=== PATIENT | male | born 1975 | race Caucasian/White ===

== ENCOUNTER 2023-08-29 13:48 | Emergency (ER) | payer OTHER, SELFPAY ==
[2023-08-29] VITALS (26 sets, daily range): BP systolic 166–177; BP diastolic 92–116; PULSE 79–106; RESP 12–34; TEMP 36.8; O2SAT 95–100
--- NOTE | 2023-08-29 13:45 | RT.EKG_ITS ---
APPROVED REPORT Exam: Resting ECG Reason for Exam: SOB Patient Location: E HR:98 bpm ECG Measurements Heart Rate 98 AXIS MI 138 P 43 QRSd 93 QRS 44 QT 366 T 46 QTc 468 Conclusion Sinus rhythm...normal P axis, V-rate 60- 99
[2023-08-29 14:26] LABS: Abs Immature Grans 0.02 10^3/uL (0.0-0.06); Absolute Basophil Count 0.05 10^3/uL (0.0-0.2); Absolute Eosinophil Count 0.06 10^3/uL (0.0-0.7); Absolute Lymphocyte Count 1.58 10^3/uL (1.2-3.4); Absolute Monocyte Count 0.63 10^3/uL (0.1-0.8); Absolute Neutrophil Count 5.35 10^3/uL (1.2-6.7); Basophils % 0.7; Eosinophils % 0.8; HCT 41.5 % (40.0-50.0); HGB 14.7 g/dL (13.5-17.5); Immature Grans % 0.3; Lymphocytes % 20.5; MCH 31.9 pg (27.0-33.0); MCHC 35.4 % (32.0-36.0); MCV 90 fL (80-95); MPV 8.9 fL (8.0-11.0); Monocytes % 8.2; Neutrophils % 69.5; Platelet Count 220 10^3/uL (130-400); RBC 4.61 10^6/uL (4.36-5.78); RDW 12.1 % (11.8-14.1); RDW-SD 40.2 fL; WBC 7.69 10^3/uL (4.4-10.8)
[2023-08-29] MEDS: Albuterol/Ipratropium 3 ML UPD VIAL UPD (14:32)
[2023-08-29 14:42] LABS: ALT 45 U/L (16-63); AST 32 U/L (15-37); Albumin 4.6 g/dL (3.4-5.0); Alkaline Phosphatase 65 U/L (46-116); BUN 8 mg/dL (7-18); Bilirubin, Total 0.5 mg/dL (0.2-1.0); CREATININE 0.9 mg/dL (0.70-1.30); Calcium 9.7 mg/dL (8.5-10.1); Chloride 101 mmol/L (98-107); Estimated GFR 106.67 (mL/min/1.73m2); Glucose 101 mg/dL (74-106); Potassium 3.3 mmol/L (3.5-5.1); Sodium 137 mmol/L (136-145); Total Protein 8.4 g/dL (6.4-8.2); Troponin I < 50 ng/L (<or=60)
[2023-08-29 14:49] LABS: Source Nasal/Nares
--- NOTE | 2023-08-29 14:50 | ED.GENADUL_ITS ---
Discharge Plan Disposition Patient Disposition: Home Condition: Stable Discharge Details Clinical Impression: Bronchitis Primary Care Provider: None,None ED Provider: Regina Mckinney Home Meds and New Rx's Prescriptions: New prednisone 20 mg tablet 40 mg PO DAILY Qty: 10 0RF albuterol sulfate [Proventil HFA] 90 mcg/actuation HFA aerosol inhaler 2 puff inhalation Q6H PRNQty: 6.7 0RF Discontinued albuterol 90 mcg/actuation aerosol inhalation PRN Discharge Instructions Instructions: Acute Bronchitis (ED) Additional Instructions: No evidence for heart problems today. Your blood pressure is high please follow-up with your primary care doctor regarding this. May want to discuss blood pressure medications. May also consider quitting smoking. Use the albuterol 1 to 2 puffs every 4-6 hours as needed please take the prednisone daily for the next 5 days. Follow up with primary care provider in 3-5 days. Return to ED sooner if any worsening or concerns. Increase oral fluids. Please take Tylenol or Ibuprofen with food every 4-6 hours as needed for pain and swelling. No evidence of COVID or heart attack today. 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 Discussed patient details and case and pending workup and disposition. Patient is hemodynamically stable, and alert and oriented. At the time of signout awaiting labs, no leukocytosis, potassium 3.3 COVID is negative D-dimer is 280. Chest x-ray ordered. patient has received Albuterol and steroids upon discharge. Also awaiting serial troponin. 1740: Serial troponin within normal limits. X-ray shows no acute abnormality. Informed staff psychologist that patient feels so much better. We will plan for discharge. Will discuss strict return instructions and follow-up care and home care. Continue weight: Spoke with patient who reports he feels much better. Discharge papers printed given albuterol inhaler and prednisone he verbalized understanding. This text was generated using [employer] system, please disregard any oddities of phrase or misspellings. 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 Discussed patient details and case and pending workup and disposition. Patient is hemodynamically stable, and alert and oriented. At the time of signout awaiting labs, no leukocytosis, potassium 3.3 COVID is negative D-dimer is 280. Chest x-ray ordered. patient has received Albuterol and steroids upon discharge. Also awaiting serial troponin. 1740: Serial troponin within normal limits. X-ray shows no acute abnormality. Informed staff psychologist that patient feels so much better. We will plan for discharge. Will discuss strict return instructions and follow-up care and home care. Continue weight: Spoke with patient who reports he feels much better. Discharge papers printed given albuterol inhaler and prednisone he verbalized understanding. This text was generated using [employer] system, please disregard any oddities of phrase or misspellings. Lab Data Lab results reviewed: Yes I reviewed the patient's lab results. Labs: Laboratory Tests Range/Units 08/29/23 08/29/23 14:15 14:40 WBC (4.4-10.8) 10^3/uL 7.69 RBC (4.36-5.78) 10^6/uL 4.61 Hgb (13.5-17.5) g/dL 14.7 Hct (40.0-50.0) % 41.5 MCV (80-95) fL 90 MCH (27.0-33.0) pg 31.9 MCHC (32.0-36.0) % 35.4 RDW (11.8-14.1) % 12.1 Plt Count (130-400) 10^3/uL 220 MPV (8.0-11.0) fL 8.9 Immature Gran % 0.3 Neutrophils % 69.5 Lymphocytes % 20.5 Monocytes % 8.2 Eosinophils % 0.8 Basophils % 0.7 Nucleated RBC % (0.0-0.3) % 0.0 Absolute Neutrophils (1.2-6.7) 10^3/uL 5.35 Absolute Lymphocytes (1.2-3.4) 10^3/uL 1.58 Absolute Monocytes (0.1-0.8) 10^3/uL 0.63 Absolute Eosinophils (0.0-0.7) 10^3/uL 0.06 Absolute Basophils (0.0-0.2) 10^3/uL 0.05 D-Dimer (<500) ng/mlFEU 280 Sodium (136-145) mmol/L 137 Potassium (3.5-5.1) mmol/L 3.3 L Chloride (98-107) mmol/L 101 Carbon Dioxide (21.0-32.0) mmol/L 27.0 Anion Gap (3-11) mmol/L 9.0 BUN (7-18) mg/dL 8 Creatinine (0.70-1.30) mg/dL 0.9 Est GFR (CKD-EPI 2020) (mL/min/1.73m2) 106.67 Glucose (74-106) mg/dL 101 Calcium (8.5-10.1) mg/dL 9.7 Total Bilirubin (0.2-1.0) mg/dL 0.5 AST (15-37) U/L 32 ALT (16-63) U/L 45 Alkaline Phosphatase (46-116) U/L 65 Troponin I (<or=60) ng/L < 50 Total Protein (6.4-8.2) g/dL 8.4 H Albumin (3.4-5.0) g/dL 4.6 Lipase (16-77) U/L 29 COVID-19 Source Nasal/Nares SARS-CoV-2 (PCR) (Negative) Negative HPI <WILL Dutton - Last Filed: 09/01/23 10:13> General Date/Time Provider Initiated Documentation: 08/29/23 14:04 . HPI Narrative: this 48-year-old gentleman history of alcoholism and tobacco abuse presents with report of chest pain which started while he was doing some jackhammering. He states he also had a little bit of shortness of breath. He denies any increased dressers or illicit drug use. Denies history of COPD. Denies any calf pain or swelling. Denies any recent flights, surgeries, long drives. States he has intermittent chest pain. He states that since time its been coming and going, he describes it as sharp. Denies any history of early coronary artery disease, denies hyperlipidemia or hypertension. Moved here from [place] in April, has not established care yet. Denies any hemoptysis. Related Data Home Medications Medication Instructions Recorded Confirmed albuterol sulfate 90 mcg/actuation 2 puff inhalation Q6H PRN #6.7 08/29/23 aerosol inhaler (Proventil HFA) grams prednisone 20 mg tablet 40 mg (2 x 20 mg) PO DAILY #10 tabs 08/29/23 Previous Rx's Medication Instructions Recorded albuterol sulfate 90 mcg/actuation 2 puff inhalation Q6H PRN #6.7 08/29/23 aerosol inhaler (Proventil HFA) grams prednisone 20 mg tablet 40 mg (2 x 20 mg) PO DAILY #10 tabs 08/29/23 Allergies Allergy/AdvReac Type Severity Reaction Status Date / Time No Known Allergies Allergy Unverified 08/29/23 13:57 General Stated Complaint: SOB ALBARO: 3 PFSH <WILL Dutton - Last Filed: 09/01/23 10:13> All Active Problems (Updated 08/29/23 @ 18:09 by Regina Mckinney NP) Bronchitis (Acute) Social History Smoking/Tobacco Use Status: Current every day Smoking risk assessment performed?: Yes Alcohol Intake: current Alcohol Intake frequency: 0-2 drinks per day Alcohol type: beer Substance use type: marijuana Course <WILL Dutton - Last Filed: 09/01/23 10:13> Vital Signs Vital signs: Vital Signs Temperature 36.8 C 08/29/23 13:58 Pulse 100 H 08/29/23 13:58 Respiratory Rate 18 08/29/23 13:58 Blood Pressure 177/92 H 08/29/23 13:58 Pulse Oximetry 98 08/29/23 13:58 Temperature 36.8 C 08/29/23 13:58 Temperature Source Oral 08/29/23 13:58 Pulse 100 H 08/29/23 13:58 Respiratory Rate 15 08/29/23 14:04 Respiratory Effort Short of Breath 08/29/23 14:04 Respiratory Depth Normal 08/29/23 14:04 Respiratory Pattern Normal 08/29/23 14:04 Blood Pressure 177/92 H 08/29/23 13:58 Blood Pressure Position Sitting 08/29/23 13:58 Pulse Oximetry 98 08/29/23 13:58 Oxygen Delivery Method Room Air 08/29/23 13:58 Oxygen Flow Rate 0 08/29/23 13:58 Lab/Test Results Lab/Test Results: Laboratory Tests Range/Units 08/29/23 08/29/23 14:15 14:40 WBC (4.4-10.8) 10^3/uL 7.69 RBC (4.36-5.78) 10^6/uL 4.61 Hgb (13.5-17.5) g/dL 14.7 Hct (40.0-50.0) % 41.5 MCV (80-95) fL 90 MCH (27.0-33.0) pg 31.9 MCHC (32.0-36.0) % 35.4 RDW (11.8-14.1) % 12.1 Plt Count (130-400) 10^3/uL 220 MPV (8.0-11.0) fL 8.9 Immature Gran % 0.3 Neutrophils % 69.5 Lymphocytes % 20.5 Monocytes % 8.2 Eosinophils % 0.8 Basophils % 0.7 Nucleated RBC % (0.0-0.3) % 0.0 Absolute Neutrophils (1.2-6.7) 10^3/uL 5.35 Absolute Lymphocytes (1.2-3.4) 10^3/uL 1.58 Absolute Monocytes (0.1-0.8) 10^3/uL 0.63 Absolute Eosinophils (0.0-0.7) 10^3/uL 0.06 Absolute Basophils (0.0-0.2) 10^3/uL 0.05 Sodium (136-145) mmol/L 137 Potassium (3.5-5.1) mmol/L 3.3 L Chloride (98-107) mmol/L 101 Carbon Dioxide (21.0-32.0) mmol/L 27.0 Anion Gap (3-11) mmol/L 9.0 BUN (7-18) mg/dL 8 Creatinine (0.70-1.30) mg/dL 0.9 Est GFR (CKD-EPI 2020) (mL/min/1.73m2) 106.67 Glucose (74-106) mg/dL 101 Calcium (8.5-10.1) mg/dL 9.7 Total Bilirubin (0.2-1.0) mg/dL 0.5 AST (15-37) U/L 32 ALT (16-63) U/L 45 Alkaline Phosphatase (46-116) U/L 65 Troponin I (<or=60) ng/L < 50 Total Protein (6.4-8.2) g/dL 8.4 H Albumin (3.4-5.0) g/dL 4.6 COVID-19 Source Nasal/Nares Sign Out <WILL Dutton - Last Filed: 09/01/23 10:13> Sign Out Data: Sign Out Comment: pending ddimer and imaging/disposition Last updated by Marybeth Galvan PA at 08/29/23 15:53 PAWSS <WILL Dutton - Last Filed: 09/01/23 10:13> Have you Been Recently Intoxicated or Drunk Within the Last 30 days?: No Have you Ever Experienced Previous Episodes of Alcohol Withdrawal?: No Have you ever Experienced Withdrawal Seizures?: No Have you ever undergone Alcohol Rehabilitation Treatment (i.e, inpt ot outpatient treatment programs)?: No Have you ever Experienced Blackouts?: No Have you ever Combined Alcohol with other Downers within the last 90 days?: No Have you ever Combined Alcohol with any other Substance of Abuse during the last 90 days?: No Positive Blood Alcohol level on Presentation? [PCS.BAL]: No Evidence of Increased Autonomic Activity (i.e. HR>120, tremor, sweating, agitation, nausea)?: No Result: 0 <Regina Mckinney NP - Last Filed: 08/29/23 18:09> Result: 0
[2023-08-29 15:21] LABS: COVID-19 PCR Negative (Negative)
[2023-08-29 15:42] LABS: Lipase 29 U/L (16-77)
[2023-08-29 16:08] LABS: D-Dimer 280 ng/mlFEU (<500)
--- NOTE | 2023-08-29 16:15 | DI.RAD_ITS ---
Exam(s) XR CHEST 2V PA LATERAL EXAM: XR CHEST 2V PA LATERAL CLINICAL HISTORY: SOB TECHNIQUE: 2D digital imaging was performed. COMPARISON: No exams were available for comparison FINDINGS: HEART: Normal size. Aorta: Not dilated. PULMONARY VASCULATURE: Normal. LUNGS: Clear. PLEURAL SPACE: No pleural effusion or pneumothorax. BONE:Unremarkable for age. IMPRESSION: No acute abnormality. DATA REPOSITORY: RADIATION DOSE DELIVERED:
[2023-08-29 17:29] LABS: Troponin I < 50 ng/L (<or=60)
[2023-08-29 18:14] LABS: Bilirubin Negative (Negative); Blood Trace-intact (Negative); Clarity Clear (Clear); Glucose Negative (Negative); Ketones Negative (Negative); Leukocyte Esterase Negative (Negative); Nitrite Negative (Negative); Specific Gravity 1.015 (1.005-1.025); Urobilinogen 0.2 mg/dL (Up to 0.2); pH 5.5 (5-8)
[2023-08-29 18:24] LABS: RBC 0-2 HPF (0-2); WBC Negative HPF (0-5)
[2023-08-29 18:25] LABS: Bacteria Negative HPF (Negative); C & S Indicated? No; Crystals Negative HPF (Negative); Epithelial Cells Negative HPF (Negative); Mucus Negative (Negative)
== END 2023-08-29 18:30 | disposition home or self-care (01) ==
PROVIDERS: Physician Assistant; Emergency Provider Registered Nurse Emergency
DX: J40 Bronchitis, not specified as acute or chronic (principal)
CPT/HCPCS: 80053; 83690; 87635; 93005; 94640; 99283; 71046; 81003; 81015; 84484; 85025; 85379; 93010; 99284; J7620